=== PATIENT | male | born 1950 | race Caucasian/White ===

== ENCOUNTER 2022-08-17 08:13 | Day surgery (SDC) | payer MEDICARE, OTHER ==
[~2022-08-17 08:13] MED LIST: D3 + K2 Dots 11 EACH; Glucosamine H1500 MG; MEGARED OMEGA-1 EAC1
== END 2022-08-17 22:51 | disposition home or self-care (01) ==
LOC: CT 08:13
DX: R07.89 Other chest pain (principal); E78.01 Familial hypercholesterolemia; I47.1 Supraventricular tachycardia; I47.29 Other ventricular tachycardia
CPT/HCPCS: 75571

== ENCOUNTER 2023-11-15 08:41 | Day surgery (SDC) | payer MEDICARE, OTHER ==
[2023-11-15] VITALS (14 sets, daily range): BP systolic 90–129; BP diastolic 48–72
[~2023-11-15] VITALS: Ht 182.9 cm; Wt 89.7 kg
[~2023-11-15 08:41] MED LIST changes: +ASCORBIC ACID500 MG PO; +Aspir 8181 MG PO; +FISH OIL PO; +GLUCOSAMINE PO; -Glucosamine H1500 MG; +KAPSPARGO SPRIN25 MG PO; +MULVITA PO; +STATIN PO; +VITAMIN D310 MC4 PO
[2023-11-15] MEDS ORDERED: Tranexamic Acid 100 ML IV SCH (08:55)
[2023-11-15] MEDS ORDERED: Lactated Ringer's 1,000 ML IV SCH ×2 (08:55→09:45)
[2023-11-15] MEDS ORDERED: Acetaminophen 500 MG Tab PO SCH ×2 (08:55→16:00)
[2023-11-15] MEDS ORDERED: Ropivacaine 0.5% HCl/Pf 123.125 MG,EPINEPHrine HCL 0.25 MG,Ketorolac Tromethamine 15 MG... INFIL SCH (08:55)
[2023-11-15] MEDS ORDERED: CeFAZolin Sodium 2,000 MG in NS 100 ML IV SCH ×2 (08:55→18:00)
[2023-11-15] MEDS ORDERED: Chlorhexidine Mouth Care 15 ML UDC MT SCH (08:55)
[2023-11-15] MEDS ORDERED: OxyCODONE HCL 10 MG TABCR PO SCH (08:55)
[2023-11-15] MEDS ORDERED: Bisacodyl 10 MG Supp PR PRN (09:40)
[2023-11-15] MEDS ORDERED: OxyCODONE HCL 5 MG TAB PO PRN ×2 (09:40→09:45)
[2023-11-15] MEDS ORDERED: Promethazine HCl 25 MG Tab PO PRN (09:40)
[2023-11-15] MEDS ORDERED: Metoclopramide HCl 5MG / ML 2ML Vial IV PRN (09:45)
[2023-11-15] MEDS ORDERED: Ondansetron HCl 2 MG / ML 2ML Vial IV PRN (09:45)
[2023-11-15] MEDS ORDERED: Magnesium Hydroxide Conc 10 ML UDC PO PRN (09:45)
[2023-11-15] MEDS ORDERED: DiphenhydrAMINE HCL 25 MG Cap PO PRN (09:50)
[2023-11-15] MEDS ORDERED: HYDROmorphone HCl/Pf 1MG SYR IV PRN (09:50)
[2023-11-15] MEDS ORDERED: propofoL 50 ML IV ONE (10:38)
[2023-11-15] MEDS ORDERED: Midazolam HCl 1MG / ML 2ML Vial ONE (10:48)
[2023-11-15] MEDS ORDERED: Phenylephrine HCl 10mg/ml 1 ml Vial ONE (11:10)
[2023-11-15] MEDS ORDERED: Dexamethasone Sod Phos 10 MG/ML 1ML VIAL ONE (11:10)
[2023-11-15] MEDS ORDERED: Ondansetron HCl 2 MG / ML 2ML Vial ONE (11:10)
[2023-11-15] MEDS ORDERED: Ketorolac Tromethamine 15mg Vial IV SCH (12:00)
--- NOTE | 2023-11-15 19:51 | NUR ---
SHIFT SUMMARY POD0 R TKA, A/OX4, VSS, TOLERATING PO, PAIN WELL MANAGED, 2 INCONTINENT VOIDS THAT PATIENT REPORTS NOT REALIZING HE HAD PEED UNTIL AFTERWARDS, NORMALLY CONTINENT AT BASELINE, WORKED WITH THERAPY TODAY, PLAN TO STAY AND WORK WITH THEM AGAIN IN THE AM. NO ACUTE EVENTS THIS SHIFT, CALL LIGHT IN REACH.
[2023-11-15] MEDS ORDERED: Docusate Sodium 100 MG Cap PO SCH (21:00)
--- NOTE | 2023-11-16 04:07 | NUR ---
SHIFT SUMMARY POD 1 R TKA. NO ACUTE CHANGES OVERNIGHT. VSS. TOLERATING ORALS. AMBULATING USING FWW c GB & SBA. DONNY WRAP C/D/I. VOIDING INDEPENDENTLY, NO BM. PT REPORTS PAIN TOLERABLE, MEDICATED PER EMAR & POLAR PACK IN USE. ANTICI[ATED TO WORK WITH PHYSCIAL THERAPY & DISCHARGE HOME LATER TODAY. CALL LIGHT IN REACH, NO NEEDS STATED AT THIS TIME, WILL REPORT TO DAY RN.
[2023-11-16 04:54] VITALS: BP 135/69
[2023-11-16 05:03] LABS: BASOPHILS ABSOLUTE AUTO 0.02 K/mm3 (0.00-0.23); BASOPHILS PERCENT AUTO 0 % (0-2); EOSINOPHILS PERCENT AUTO 0 % (0-6); Hematocrit 39.5 % (37.0-53.0); Hemoglobin 13.3 g/dL (13.5-17.5); IMMATURE GRAN ABSOLUTE AUTO 0.06 K/mm3 (0.00-0.10); IMMATURE GRAN PERCENT AUTO 0 % (0-1); LYMPHOCYTES ABSOLUTE AUTO 1.08 K/mm3 (0.84-5.20); LYMPHOCYTES PERCENT AUTO 7 % (21-46); MONOCYTES ABSOLUTE AUTO 0.96 K/mm3 (0.16-1.47); MONOCYTES PERCENT AUTO 6 % (4-13); Mean Corpuscular HGB 32.4 pg (26.0-34.0); Mean Corpuscular HGB Conc 33.7 g/dL (31.5-36.5); Mean Corpuscular Volume 96 fL (80-100); Mean Platelet Volume 9.8 fL (9.1-12.4); NEUTROPHILS ABSOLUTE AUTO 12.95 K/mm3 (1.96-9.15); NEUTROPHILS PERCENT AUTO 86 % (41-73); Platelet Count 224 K/mm3 (150-400); RDW Coefficient Variation 12.2 % (11.7-14.2); RDW Standard Deviation 43.1 fL (35.1-46.3); White Blood Cell Count 15.07 K/mm3 (4.00-11.30)
[2023-11-16 05:26] LABS: Bun/Creatinine Ratio 30.7 (12.0-20.0); Calcium, Blood 8.1 mg/dL (8.5-10.1); Creatinine, Blood 0.75 mg/dL (0.60-1.20); Potassium, Blood 4.6 mmol/L (3.5-5.5)
[2023-11-16 07:41] VITALS: BP 116/65
[2023-11-16] MEDS ORDERED: Cholecalciferol 400 unit Tab PO SCH (09:00)
[2023-11-16] MEDS ORDERED: Multivitamins 1 Tab PO SCH (09:00)
[2023-11-16] MEDS ORDERED: Aspirin 81 MG Chew PO SCH (09:00)
[2023-11-16] MEDS ORDERED: Ascorbic Acid 500 MG Tab PO SCH (09:00)
[2023-11-16] MEDS ORDERED: Metoprolol Succinate 25 MG TABCR PO SCH (09:00)
--- NOTE | 2023-11-16 10:21 | NUR ---
DISCHARGE SUMMARY PT POD #1 R ARTHROPLASTY. PT WORKED WITH PHYSICAL THERAPY AND UP WITH A FWW. PT VOIDING BUT NO BM YET. DONNY WRAP AND AQUACEL CDI. PT RECEIVED PAIN MEDICATION ONCE THIS SHIFT AND REPORTED NO PAIN AT DC. PT DC'D HOME WITH .
== END 2023-11-16 10:10 | disposition home or self-care (01) ==
LOC: ORSCMMR 08:41 → ORD 10:30 → ORSCMMR 10:30 → SURS 13:41 → ORSCMMR 13:41 → SURS 11-16 10:10 → ORSCMMR 11-16 10:10
PROVIDERS: Orthopaedic Surgery
PROC: 0SRC0JA Replacement of Right Knee Joint with Synthetic Substitute, Uncemented, Open Approach (ICD-10-PCS; principal; 2023-11-15 10:30)
PROC: 8E0Y0CZ Robotic Assisted Procedure of Lower Extremity, Open Approach (ICD-10-PCS; principal; 2023-11-15 10:30)
DX: M17.11 Unilateral primary osteoarthritis, right knee (principal); M67.863 Other specified disorders of tendon, right knee; I10 Essential (primary) hypertension; G47.33 Obstructive sleep apnea (adult) (pediatric); Z79.899 Other long term (current) drug therapy; Z79.82 Long term (current) use of aspirin
CPT/HCPCS: 36415; 73560-RT; 80048; 85025; 97110; 97116; 97162; A9270; C1713; C1776; J0171; J0690; J0735; J1100; J1885; J2250; J2371; J2405; J2704; J2795; J7120

== ENCOUNTER 2024-05-15 06:00 | Day surgery (SDC) | payer MEDICARE, OTHER ==
[~2024-05-15] VITALS: Ht 182.9 cm; Wt 91.0 kg
[2024-05-15] VITALS (8 sets, daily range): BP systolic 99–139; BP diastolic 48–72
[~2024-05-15 06:00] MED LIST changes: +Crestor40 MG PO; +Flonase 0.05% N16 GM
[2024-05-15] MEDS ORDERED: Nitroglycerin 2 MG/20 ML BTL ONE (06:38)
[2024-05-15] MEDS ORDERED: Heparin Sodium 1000 Units/ML 10ML MDV ONE ×2 (06:38→08:02)
[2024-05-15] MEDS ORDERED: NS 1,000 ML IV ONE ×2 (06:38→07:01)
[2024-05-15] MEDS ORDERED: Verapamil HCL 2.5 MG/ML 2ML Injection ONE (06:38)
[2024-05-15] MEDS ORDERED: NS 250 ML IV ONE (06:38)
[2024-05-15] MEDS ORDERED: Midazolam HCl 1MG / ML 2ML Vial ONE (07:01)
[2024-05-15] MEDS ORDERED: FentaNYL Citrate 50 MCG/ML 2 ML Injection ONE (07:01)
[2024-05-15] MEDS ORDERED: Ticagrelor 90 MG TABLET ONE (08:28)
--- NOTE | 2024-05-15 08:50 | NUR ---
Pt returns to recovery room. Pt alert and oriented, up in recliner. Pt. provided with breakfast tray. 9cc of air in TR band. Site wnl, no oozing or bleeding from site. pt. family to bedside. arm board in place, distal fingers wnl.
--- NOTE | 2024-05-15 09:15 | NUR ---
PT AMBULATES TO THE BATHROOM TO VOID WITH OUT DIFFICULTY.
--- NOTE | 2024-05-15 10:07 | NUR ---
TR band deflation intiated per protocol. No oozing or hematoma noted. site remains unchanged from intial assessment. vss. family at bedside.
--- NOTE | 2024-05-15 10:15 | NUR ---
Tr band fully deflated at this time. Dr. Choudhury at bedside to talk with pt.
[2024-05-15] MEDS ORDERED: Isosorbide Mono30 MG PO (10:40)
--- NOTE | 2024-05-15 10:59 | NUR ---
discharge instuctions reviewed in detail. pt. has no futher questions at this time. prescriptions called into [email or web address] per pt request. radial site remains wnl, unchnaged from previous assessment. pt. s/o at bedside for discharge instructions and is to drive pt home.
== END 2024-05-15 11:44 | disposition home or self-care (01) ==
LOC: MHTC 06:00
PROC: 4A023N7 Measurement of Cardiac Sampling and Pressure, Left Heart, Percutaneous Approach (ICD-10-PCS; principal; 2024-05-15)
PROC: B2161ZZ Fluoroscopy of Right and Left Heart using Low Osmolar Contrast (ICD-10-PCS; principal; 2024-05-15)
DX: I25.119 Atherosclerotic heart disease of native coronary artery with unspecified angina pectoris (principal); I49.3 Ventricular premature depolarization; I47.10 Supraventricular tachycardia, unspecified; E78.2 Mixed hyperlipidemia; G47.00 Insomnia, unspecified; G47.33 Obstructive sleep apnea (adult) (pediatric); Z79.82 Long term (current) use of aspirin; Z79.899 Other long term (current) drug therapy; Z87.891 Personal history of nicotine dependence
CPT/HCPCS: 76937; 85347; 93458; 93571; 93572; 99152; 99153; A9270; C1769; C1887; C1894; J1644; J2250; J3010; J7030; J7050; Q9967